=== PATIENT | male | born 1940 | race Caucasian/White ===

== ENCOUNTER → 2016-10-12 | Outpatient (CLI) | payer OTHER, BC ==
[~2016-10-12] MED LIST: IOPAMIDOL (ISOVUE-300) 100 ML BTL IV ONE
== END ==
LOC: FIMAGING 09:45
PROVIDERS: ATTEND Specialist
DX: R31.0 Gross hematuria (principal); N20.0 Calculus of kidney; N20.1 Calculus of ureter; N28.1 Cyst of kidney, acquired
CPT/HCPCS: 74178; Q9967

== ENCOUNTER → 2016-11-18 | Outpatient (CLI) | payer OTHER, BC | LOC: FIMAGING 15:05 | PROVIDERS: ATTEND Specialist | DX: N20.1 Calculus of ureter (principal) ==

== ENCOUNTER → 2016-12-28 | Outpatient (CLI) | payer OTHER, BC | LOC: GIMAGING 15:37 | PROVIDERS: ATTEND Nurse Practitioner Family | DX: S99.921A Unspecified injury of right foot, initial encounter (principal) | CPT/HCPCS: 73660-PO ==

== ENCOUNTER → 2017-10-10 | Outpatient (CLI) | payer OTHER, BC | LOC: FIMAGING 14:25 | PROVIDERS: ATTEND Specialist | DX: N20.1 Calculus of ureter (principal) ==

== ENCOUNTER → 2018-09-25 | Outpatient (CLI) | payer OTHER, BC | LOC: BHFA 14:00 | PROVIDERS: ATTEND Internal Medicine Cardiovascular Disease | DX: I25.10 Atherosclerotic heart disease of native coronary artery without angina pectoris (principal) ==

== ENCOUNTER → 2018-10-12 | Outpatient (CLI) | payer OTHER, BC | LOC: FIMAGING 12:32 | PROVIDERS: ATTEND Specialist | DX: N20.0 Calculus of kidney (principal) ==